=== PATIENT | male | born 1970 | race African-American/Black ===

== ENCOUNTER 2020-04-03 07:01 | Emergency (ER) | payer SELFPAY ==
[~2020-04-03] VITALS: Ht 182.9 cm; Wt 96.0 kg
[2020-04-03 07:15] VITALS: BP 130/66
[2020-04-03] MEDS ORDERED: TETRACAINE 0.5% OPHTH DROPS 4ML BOTHEYE ONE (07:30)
[2020-04-03] MEDS ORDERED: BALANCED SALT IRRIG SOLN 15ML IR ONE (07:30)
[2020-04-03] MEDS ORDERED: FLUORESCEIN SODIUM 1MG/STRIP BOTHEYE ONE (07:30)
[2020-04-03] MEDS ORDERED: BALANCED SALT IRRIG SOLN COMB2 500ML OP ONE (07:45)
== END 2020-04-03 08:04 | disposition left against medical advice (07) ==
LOC: ER 07:20
DX: T65.893A Toxic effect of other specified substances, assault, initial encounter (principal); H10.213 Acute toxic conjunctivitis, bilateral; T20.46XA Corrosion of unspecified degree of forehead and cheek, initial encounter; Y07.410 Brother, perpetrator of maltreatment and neglect; Y92.89 Other specified places as the place of occurrence of the external cause; R03.0 Elevated blood-pressure reading, without diagnosis of hypertension
CPT/HCPCS: 99283